=== PATIENT | male | born 1965 | race Caucasian/White ===

== ENCOUNTER 2016-12-20 01:05 | Emergency (ER) | payer OTHER ==
[~2016-12-20] VITALS: Ht 188 cm; Wt 81.7 kg
[2016-12-20 01:06] VITALS: BP 146/90
[2016-12-20 01:42] LABS: URINE BILIRUBIN NEGATIVE (Negative); URINE BLOOD 2+ (Negative); URINE COLOR YELLOW; URINE GLUCOSE-RANDOM* NEGATIVE (Negative); URINE KETONES NEGATIVE (Negative); URINE LEUKOCYTES-REFLEX NEGATIVE (Negative); URINE PROTEIN (DIPSTICK) 2+ (Negative); URINE SPECIFIC GRAVITY 1.015 (1.003-1.035); URINE UROBILINOGEN 0.2 E.U./dl (0.2-1.0)
[2016-12-20 01:45] LABS: HEMATOCRIT 45.5 % (42.0-52.0); HEMOGLOBIN 15.4 gm/dL (14.0-18.0); MCH 33.6 pg (26.0-34.0); MCHC 33.9 g/dL (28.0-37.0); MCV 99.2 fL (80.0-100.0); PLATELET COUNT 143 thou/uL (150-400); RBC 4.59 mil/uL (4.50-6.00); RDW 13.6 % (10.5-14.5); WBC 3.3 thou/uL (4.0-11.0)
[2016-12-20 01:50] LABS: ANION GAP 13 mmol/L (7-16); BUN 8 mg/dL (7-18); CALCIUM 8.3 mg/dL (8.5-10.1); CHLORIDE 105 mmol/L (98-107); CO2 27 mmol/L (21-32); CREATININE 0.7 mg/dL (0.7-1.3); GLUCOSE 115 mg/dL (74-106); POTASSIUM 3.9 mmol/L (3.5-5.1); SODIUM 145 mmol/L (136-145)
[2016-12-20 01:50] LABS: AMP/METHAMP Negative (Negative); BARBITURATES Negative (Negative); BENZODIAZEPINES POSITIVE (Negative); COCAINE Negative (Negative); METHADONE Negative (Negative); OPIATES Negative (Negative); PCP Negative (Negative); THC Negative (Negative)
[2016-12-20 01:55] LABS: CASTS None Seen /LPF (None Seen); CRYSTALS None Seen /LPF (None Seen); SQUAMOUS None Seen /LPF (0-3); URINE RBC 3-10 Few /HPF (0-2); URINE WBC-REFLEX None Seen /HPF (0-5)
[2016-12-20 01:59] LABS: ALBUMIN 4.3 g/dL (3.4-5.0); ALKALINE PHOSPHATASE 92 U/L (46-116); SALICYLATE 2.9 mg/dL (2.8-20.0); SGOT 118 U/L (15-37); SGPT 89 U/L (30-65); TOTAL BILIRUBIN 0.6 mg/dL (<0.1-1.0); TOTAL PROTEIN 8.5 g/dL (6.4-8.2); TROPONIN-I < 0.04 ng/mL (<0.06)
[2016-12-20 02:01] LABS: ACETAMINOPHEN < 2 ug/mL (10-30)
[2016-12-20] MEDS ORDERED: PEPCID40 MG PO (02:09)
[2016-12-20] MEDS ORDERED: ZOFRAN ODT8 MG PO (02:09)
[2016-12-20 02:28] LABS: MANUAL DIFF YES
[2016-12-20 02:58] LABS: ABSOLUTE NEUTROPHILS 1.5 thou/uL (1.4-8.2); ATYPICAL LYMPHS 4 %; TOTAL CELL COUNT 100
== END 2016-12-20 07:26 | disposition left against medical advice (07) ==
LOC: ER 01:05
PROVIDERS: Emergency Medicine
DX: F10.129 Alcohol abuse with intoxication, unspecified (principal); K85.20 Alcohol induced acute pancreatitis without necrosis or infection; F17.210 Nicotine dependence, cigarettes, uncomplicated